=== PATIENT | male | born 1960 | race Two or more races ===

== ENCOUNTER 2024-12-13 09:15 | Day surgery (SDC) | payer OTHER, MEDICAID ==
[2024-12-08 14:03] LABS: Hematocrit 44.6 % (41.0-53.0); Hemoglobin 15.1 g/dL (13.5-17.5); Mean Corpuscular Hemoglobin 31.5 pg (28.0-32.0); Mean Corpuscular Volume 92.8 fL (80.0-100.0); Nucleated Red Blood Cells % 0.1 %
[2024-12-08 14:08] LABS: Urine Protein, UAD TRACE (Negative)
[2024-12-08 14:19] LABS: INR 1.02 (0.9-1.15); Partial Thromboplastin Time 24.0 SEC (24.5-34.5); Prothrombin Time 10.8 sec (9.3-11.8)
[2024-12-08 14:36] LABS: Albumin 4.5 g/dL (3.2-4.8); Alkaline Phosphatase 116 U/L (46-116); Anion Gap 5 (5-15); BUN/Creatinine Ratio 12.0 (10.0-20.0); Blood Urea Nitrogen 21 mg/dL (9-23); Calcium 9.0 mg/dL (8.7-10.4); Carbon Dioxide 26 mmol/L (20-31); Glucose 82 mg/dL (74-106); Potassium 3.8 mmol/L (3.5-5.1); Sodium 144 mmol/L (136-145); Total Protein 7.2 g/dL (5.7-8.2)
[2024-12-08 14:37] LABS: Bilirubin, Total 0.4 mg/dL (0.2-1.0)
[2024-12-08 14:39] LABS: Alanine Aminotransferase < 9 U/L (7-40); Chloride 113 mmol/L (98-107)
[~2024-12-13] VITALS: Ht 185.4 cm; Wt 97.1 kg
[~2024-12-13 09:15] MED LIST: ACET325T82 PO; ALBUAER3 IN; ASPI81CH59 PO; ATOR40TA52 PO; CHOL100046 PO; CLOP75TA70 PO; HYDR200T36 PO; HYDR25TA4 PO; HYDR25TA87 PO; LOSA-535 PO; METO-289 PO; OMEP20TA PO; [UNRECOGNIZED DRUG - CODE] PO
[2024-12-13] MEDS ORDERED: LIDOCAINE 1% INJ PF 5ML AMP ONE (13:34)
[2024-12-13] MEDS ORDERED: KETOROLAC TROMETH 30 MG/ML 1ML VIAL ONE (13:34)
[2024-12-13] MEDS ORDERED: GLYCOPYRROLATE 0.2 MG/ML 1ML VIAL ONE (13:34)
[2024-12-13] MEDS ORDERED: PROPOFOL 10 MG/ML 20 ML IV ONE ×2 (13:34→14:23)
[2024-12-13] MEDS ORDERED: ONDANSETRON HCL 4 MG/2 ML VIAL ONE (13:34)
[2024-12-13] MEDS ORDERED: KETAMINE 50mg/ML 1ml syringe ONE (13:34)
[2024-12-13] MEDS: GABAPENTIN 300 MG CAP PO ONE (13:55)
[2024-12-13] MEDS: CELECOXIB 100 MG CAP PO ONE (13:55)
[2024-12-13] MEDS: ACETAMINOPHEN IV 1000 MG/100ML (10MG/ML) IV ONE (13:55)
[2024-12-13] MEDS: ceFAZolin 2 GM/D5W50ml 50 ML IV ONE (14:00)
[2024-12-13] MEDS ORDERED: LABETALOL HCL 5 MG/ML ML 20ML VIAL IV ONE (14:13)
[2024-12-13] MEDS ORDERED: BUPIVACAINE HCL 50 ML ONE (14:18)
[2024-12-13] MEDS ORDERED: hydrALAZINE HCL 20 MG/ML VL ONE (14:28)
[2024-12-13] MEDS: BUPIVACAINE 0.5% P/F INJ 10 ML VIAL ONE (14:30)
[2024-12-13 14:32] VITALS: TEMP 98.6; O2SAT 100
--- NOTE | 2024-12-13 14:33 | DVHOP2 ---
Operative Report - 2 Report Details Date: 12/13/24 Preop Diagnosis: 1. Left foot bunion 2. Left foot metatarsalgia 3. Left foot pain Postop Diagnosis: Same as preop Surgeon: Abdirizak Owusu MD Anesthesiologist: See anesthesia Anesthesia: Mac Consent: The patient was informed of the risks and benefits of the procedure. These include but are not limited to complications of anesthesia, postoperative infection, incomplete relief of symptoms, recurrence of symptoms, damage to blood vessels, nerves and tendons, deep venous thrombosis, pulmonary embolism and possible need for repeat surgery in the future. Complications: none Estimated Blood Loss: Minimal Fluids: See anesthesia Findings: Consistent with diagnosis Indications for Surgery: Worsening left foot pain Name of Procedure Performed 1. Left bunionectomy (22610) 2. Left 2nd cj osteotomy (81603) 3. Left 3rd cj osteotomy (74500) Procedure Details Procedure Details: PRE-PROCEDURE INFORMATION: In the pre-op holding area, the extremity to be operated on was clearly marked and the patient verified correct laterality of the marking. The patient was transferred to the OR table and placed in a supine position. A timeout was performed in which identification of the correct patient, procedure, location, and materials was done. The left foot and leg were prepped and draped in normal sterile fashion. DESCRIPTION OF PROCEDURE: Attention was directed to the left 1st metatars ophalangeal joint where a stab incision was made at the neck of the 1st metatarsal. Care was taken to avoid damage the neurovascular and tendinous structures. Using intraoperative fluoroscopy and an MIS per, an osteotomy was then made at the neck of the 1st metatarsal. The metatarsal head was then shifted into position aligning the sesamoid bones over the fragment. Using a 6 2 K-wire, the wire was then driven down the shaft of the 1st metatarsal to hold the head in place until the osteotomy has healed. Fluoroscopy verified proper placement of hardware as well as correction of previous bunion deformity. Attention was directed to the left 2nd metatarsal head where a stab incision was made. The incision was deepened through blunt and sharp dissection. Care was taken to avoid damage to neurovascular structures throughout dissection. Incision was carried to the level of the 2nd metatarsal head or on fluoroscopy as well as preoperative x-rays, it was noted there was significant plantar flexion of the metatarsal head. Using an MIS bur, the an osteotomy was performed across the neck of the metatarsal head. The metatarsal head was then able to float. It was noted off intraoperative fluoroscopy, there was significant reduction deformity. Attention was directed to the left 3rd metatarsal head where a stab incision was made. The incision was deepened through blunt and sharp dissection. Care was taken to avoid damage to neurovascular structures throughout dissection. Incision was carried to the level of the 2nd metatarsal head or on fluoroscopy as well as preoperative x-rays, it was noted there was significant plantar flexion of the metatarsal head. Using an MIS bur, the an osteotomy was performed across the neck of the metatarsal head. The metatarsal head was then able to float. It was noted off intraoperative fluoroscopy, there was significant reduction deformity. All surgical wounds were irrigated copiously with saline and closed in layers with the aforementioned suture material. A dry sterile dressing was placed on the surgical extremity. The patient was placed in a post op shoe POSTOPERATIVE INFORMATION: The patient tolerated the above noted procedure and anesthesia well and was transferred to the PACU with vital signs stable, and vascular status intact with capillary refill intact to all digits. Postoperative instructions reviewed in detail with the patient with written instructions provided. Patient will return to clinic in approximately 10-14 days for first postoperative visit. Patient has the number of the clinic and was instructed to call prior to that time should any problems, questions, or concerns arise. Condition Good Disposition Home Visit Coding Podiatry Date of Service if different f: Dec 13, 2024 Billing Provider: ABDIRIZAK OWUSU DPM Podiatry Common Visit Codes: PROCEDURE ONLY ABDIRIZAK OWUSU DPM Dec 13, 2024 14:33
[2024-12-13] MEDS ORDERED: NALOXONE HCL 0.4 MG/ML VIAL IV PRN (14:45)
[2024-12-13] MEDS ORDERED: fentaNYL CITRATE 100 MCG/2 ML VL IV PRN (14:45)
[2024-12-13] MEDS ORDERED: FLUMAZENIL 0.1 MG/ML INJ 10ML MDV IV PRN (14:45)
[2024-12-13] MEDS: hydrALAZINE HCL 20 MG/ML VL IV PRN (14:50)
[2024-12-13] MEDS: HYDROmorphone HCL 2 MG/ML VL/or syr IV PRN (14:50)
[2024-12-13 15:17] VITALS: BP 121/91; PULSE 71; RESP 15; O2SAT 94
[2024-12-13] MEDS: ONDANSETRON HCL 4 MG/2 ML VIAL IV PRN (15:17)
== END 2024-12-13 15:30 | disposition home or self-care (01) ==
LOC: SUR 09:15
PROVIDERS: ATTEND Podiatrist
DX: M77.42 Metatarsalgia, left foot (principal); M21.612 Bunion of left foot; M79.672 Pain in left foot; M21.6X2 Other acquired deformities of left foot; E11.42 Type 2 diabetes mellitus with diabetic polyneuropathy; B35.1 Tinea unguium; E11.620 Type 2 diabetes mellitus with diabetic dermatitis; L60.3 Nail dystrophy; L84 Corns and callosities; I10 Essential (primary) hypertension; E78.00 Pure hypercholesterolemia, unspecified; Z86.73 Personal history of transient ischemic attack (TIA), and cerebral infarction without residual deficits; Z98.890 Other specified postprocedural states; Z88.0 Allergy status to penicillin
CPT/HCPCS: 28296; 28308; 36415; 80053; 81001; 85025; 85610; 85730; C1713; J0360; J0690; J1100; J1171; J1885; J2405; J2704; J3490; J0131